=== PATIENT | male | born 1960 | race African-American/Black ===

== ENCOUNTER → 2016-09-12 | Outpatient (CLI) | payer MEDICARE, OTHER ==
[~2016-09-12] MED LIST: ATOR1TAB18 PO; ATOR20TA15 PO; BENZ1TAB PO; CARV6.252 PO; GLIP10TA6 PO; LISI20TA3 PO; METF1000 PO; PALI156P IM; RISP1TAB2 PO
[2016-09-12 10:05] LABS: HEMATOCRIT 46.3 % (39.0-51.0); MEAN CORPUSCULAR HEMOGLOBIN 30.8 PG (27.0-34.0); MEAN CORPUSCULAR HGB CONC 34.3 % (32.0-36.0); PLATELET COUNT 284 TH/MM3 (150-450); RED BLOOD COUNT 5.14 MIL/MM3 (4.50-5.90); RED CELL DISTRIBUTION WIDTH 13.1 % (11.6-17.2); REVIEW FLAG FINAL
[2016-09-12 10:42] LABS: MICRO ALBUMIN RANDOM URINE RAW 44.5 MG/L (0.0-30.0)
[2016-09-12 10:46] LABS: ALKALINE PHOSPHATASE 131 U/L (45-117); ALT (GPT) 29 U/L (12-78); ANION GAP 9 MEQ/L (5-15); AST (GOT) 19 U/L (15-37); BICARBONATE 29.2 MEQ/L (21.0-32.0); CHLORIDE 96 MEQ/L (98-107); GLOMERULAR FILTRATION RATE 91 ML/MIN (>89); GLUCOSE,FASTING 306 MG/DL (74-99); HDL CHOLESTEROL 28.8 MG/DL (40.0-60.0); POTASSIUM 4.3 MEQ/L (3.5-5.1); SODIUM (NA) 134 MEQ/L (136-145); TOTAL BILIRUBIN ADULT 0.4 MG/DL (0.2-1.0)
[2016-09-12 10:47] LABS: BLOOD UREA NITROGEN 13 MG/DL (7-18)
[2016-09-13 12:53] LABS: HEMOGLOBIN A1a 1.4 %; HEMOGLOBIN A1b 1.6 %; HEMOGLOBIN Ao 72.1 %; HEMOGLOBIN F 2.2 %; HEMOGLOBIN LA1C 3.4 %; HEMOGLOBIN P3 5.1 %
== END ==
LOC: CLAB 09:09
PROVIDERS: ATTEND Family Medicine
DX: E11.9 Type 2 diabetes mellitus without complications (principal); E78.5 Hyperlipidemia, unspecified; I10 Essential (primary) hypertension
CPT/HCPCS: 36415; 80053; 80061; 82043; 83036; 84443; 85027

== ENCOUNTER → 2017-03-21 | Outpatient (CLI) | payer MEDICARE, OTHER ==
[~2017-03-21] MED LIST changes: -ATOR20TA15 PO; +DULA10IN SQ
[2017-03-21 07:12] LABS: HDL CHOLESTEROL 26.9 MG/DL (40.0-60.0)
[2017-03-21 16:17] LABS: HEMOGLOBIN A1a 1.5 %; HEMOGLOBIN A1b 1.3 %; HEMOGLOBIN Ao 74.5 %; HEMOGLOBIN F 1.9 %; HEMOGLOBIN LA1C 2.4 %; HEMOGLOBIN P3 4.6 %
== END ==
LOC: CLAB 06:34
PROVIDERS: ATTEND Family Medicine
DX: E78.1 Pure hyperglyceridemia (principal)
CPT/HCPCS: 36415; 80061; 83036

== ENCOUNTER → 2017-06-05 | Outpatient (CLI) | payer MEDICARE, OTHER ==
[~2017-06-05] MED LIST changes: +ASPI81CH37 CHEW
[2017-06-05 11:02] LABS: ANION GAP 9 MEQ/L (5-15); AST (GOT) 15 U/L (15-37); BICARBONATE 24.7 MEQ/L (21.0-32.0); BLOOD UREA NITROGEN 10 MG/DL (7-18); CHLORIDE 105 MEQ/L (98-107); GLOMERULAR FILTRATION RATE 119 ML/MIN (>89); GLUCOSE,FASTING 134 MG/DL (74-99); POTASSIUM 4.2 MEQ/L (3.5-5.1); SODIUM (NA) 139 MEQ/L (136-145)
[2017-06-05 11:03] LABS: ALT (GPT) 24 U/L (12-78)
[2017-06-05 11:13] LABS: ALKALINE PHOSPHATASE 80 U/L (45-117); HDL CHOLESTEROL 24.2 MG/DL (40.0-60.0); LDL CHOLESTEROL 29 MG/DL (0-99); TOTAL BILIRUBIN ADULT 0.3 MG/DL (0.2-1.0)
[2017-06-05 16:45] LABS: HEMOGLOBIN A1a 1.4 %; HEMOGLOBIN A1b 1.3 %; HEMOGLOBIN Ao 81.8 %; HEMOGLOBIN F 1.2 %; HEMOGLOBIN LA1C 2.1 %; HEMOGLOBIN P3 3.8 %
== END ==
LOC: CLAB 10:07
PROVIDERS: ATTEND Family Medicine
DX: E11.9 Type 2 diabetes mellitus without complications (principal); E78.5 Hyperlipidemia, unspecified
CPT/HCPCS: 36415; 80053; 80061; 83036; 84443

== ENCOUNTER → 2017-10-06 | Outpatient (CLI) | payer MEDICARE, OTHER ==
[~2017-10-06] MED LIST changes: -ASPI81CH37 CHEW; +ASPI81CH6 CHEW; -ATOR1TAB18 PO; +ATOR80TA45 PO
[2017-10-06 07:48] LABS: ALKALINE PHOSPHATASE 124 U/L (45-117); HDL CHOLESTEROL 17.6 MG/DL (40.0-60.0); TOTAL BILIRUBIN ADULT 0.6 MG/DL (0.2-1.0); TRIGLYCERIDES 1159 MG/DL (42-150)
[2017-10-06 08:23] LABS: ALBUMIN 3.5 GM/DL (3.4-5.0); BLOOD UREA NITROGEN 14 MG/DL (7-18); CALCIUM 8.3 MG/DL (8.5-10.1); CREATININE 0.96 MG/DL (0.60-1.30); GLOMERULAR FILTRATION RATE 98 ML/MIN (>89); GLUCOSE,FASTING 293 MG/DL (74-99); TOTAL PROTEIN 7.1 GM/DL (6.4-8.2)
[2017-10-06 08:24] LABS: ALT (GPT) 28 U/L (12-78); AST (GOT) 28 U/L (15-37); CHLORIDE 104 MEQ/L (98-107); SODIUM (NA) 136 MEQ/L (136-145)
[2017-10-06 08:25] LABS: BICARBONATE 22.9 MEQ/L (21.0-32.0); CHOLESTEROL 97 MG/DL (120-200); CHOLESTEROL/ HDL RATIO 5.51 RATIO
== END ==
LOC: CLAB 06:40
PROVIDERS: ATTEND Family Medicine
DX: E11.9 Type 2 diabetes mellitus without complications (principal); E78.5 Hyperlipidemia, unspecified; F20.9 Schizophrenia, unspecified
CPT/HCPCS: 36415; 80053; 80061; 82043; 83036